=== PATIENT | male | born 1970 | race Caucasian/White ===

== ENCOUNTER → 2024-07-24 07:18 | Outpatient (REF) | payer OTHER, SELFPAY | LOC: RCS 07:18 | PROVIDERS: ATTENDING PHYSICIAN Internal Medicine Cardiovascular Disease; FAMILY PHYSICIAN Family Medicine | DX: R07.89 Other chest pain (principal); Z82.49 Family history of ischemic heart disease and other diseases of the circulatory system; E78.2 Mixed hyperlipidemia; R73.03 Prediabetes | CPT/HCPCS: 93017 ==

== ENCOUNTER → 2024-10-24 16:27 | Outpatient (REF) | payer OTHER, SELFPAY | LOC: RAD 16:27 | PROVIDERS: ATTENDING PHYSICIAN Nurse Practitioner Adult Health | DX: R63.0 Anorexia (principal); R10.30 Lower abdominal pain, unspecified; R63.4 Abnormal weight loss; R19.5 Other fecal abnormalities | CPT/HCPCS: 74177; Q9967 ==

== ENCOUNTER 2024-12-30 06:34 | Day surgery (SDC) | payer OTHER, SELFPAY | END 2024-12-30 13:56 | disposition home or self-care (01) | LOC: GI 06:34 | PROVIDERS: ATTENDING PHYSICIAN Specialist; FAMILY PHYSICIAN Family Medicine | DX: Z12.11 Encounter for screening for malignant neoplasm of colon (principal); R19.4 Change in bowel habit; K57.30 Diverticulosis of large intestine without perforation or abscess without bleeding; R63.0 Anorexia; R93.3 Abnormal findings on diagnostic imaging of other parts of digestive tract; R14.0 Abdominal distension (gaseous); K22.2 Esophageal obstruction; K22.89 Other specified disease of esophagus; D12.3 Benign neoplasm of transverse colon; K63.89 Other specified diseases of intestine; K29.50 Unspecified chronic gastritis without bleeding; R89.7 Abnormal histological findings in specimens from other organs, systems and tissues | CPT/HCPCS: 45385; 45380; 43239; 88305; 88342 ==